=== PATIENT | female | born 1990 | race Caucasian/White ===

== ENCOUNTER 2022-08-03 16:30 | Inpatient (IN) ==
[2022-08-03] MEDS ORDERED: OXYTOCIN 30 UNITS/500 ML BAG IV PRN (16:54)
[2022-08-03] MEDS ORDERED: LIDOCAINE 1% LOCAL 20 ML VIAL INFIL PRN (16:54)
[2022-08-03] MEDS ORDERED: PENICILLIN G POTASSIUM 6 MU in DEXTROSE 5% 250 ML IV STA (16:54)
--- NOTE | 2022-08-03 17:24 | History & Physical Report ---
Date of Service August 03, 2022 Assessment & Plan (1) Premature rupture of membranes: Plan: 32-year-old -0-2-0 at 38 weeks and 2 days of gestation with premature rupture of membranes at term, no signs of symptoms of active labor, Vital signs stable afebrile, heart rate reassuring, GBS positive, Plan to admit, monitor, Start penicillin now, patient desires to ambulate, then start oral Cytotec for cervical ripening/induction/augmentation of labor, Patient understands increased risk of intermittent infection with prolonged labor and agrees for oxytocin induction later if she was not going to labor All questions were answered. (2) Amniotic fluid leaking: History of Present Illness Primary Care Provider: Mary Hogan DO Patient is a 32-year-old -0-1-0 at start 8 weeks and 2 days of gestation who felt a gush of clear fluid leakage at around 3 PM this afternoon. She has been leaking since then. She does not feel any contractions or pain. She feels good movements. Her has been uncomplicated except, 1. GBS in urine, 2. Maternal asthma, mild, uses inhaler as needed every 1 to 2 months, 3. Family history of congenital anomaly, status post [facility] consultation and ultrasound, 4. Depression complicating , on Zoloft 100 mg daily, Allergies Allergy/AdvReac Type Severity Reaction Status Date / Time cat dander Allergy Mild Sneezing, Verified 07/13/22 16:49 itchy and watery eyes gluten Allergy Gastrointestinal Verified 07/13/22 17:26 Upset DUST MITES Allergy Mild Difficulty Uncoded 07/13/22 16:49 Breathing SULFA Allergy Unknown fever,throat Uncoded 07/13/22 16:49 swelling Home Medications Medication Instructions Recorded Confirmed Type desloratadine 5 mg tablet 5 mg PO DAILY 07/13/22 08/03/22 History (Clarinex) famotidine 20 mg tablet 20 mg PO DAILY 07/13/22 08/03/22 History hydroxychloroquine 200 mg tablet 200 mg PO DAILY 07/13/22 08/03/22 History prenat.vits,horacio,zov-lzlj-ftbpi 1 tab PO DAILY 07/13/22 08/03/22 History sertraline 50 mg tablet 100 mg PO DAILY 07/13/22 08/03/22 History Patient History Medical History Anxiety Asthma Connective tissue disorder Ectopic Migraines Orthostatic hypotension PCOS (polycystic ovarian syndrome) Surgical History H/O dilation and curettage Social History Smoking Status: Never smoker Hx Alcohol Use: No Hx Substance Use: No Preferred Language: Latvian Communication Ability: Effective Loader Operator/Ground Leader Required: No Beliefs That Will Affect Care: None Current Living Situation: Spouse Assistive Devices: None OB History History of SAB in 2019, status post D&C, History of ectopic in 2019, s/p methotrexate SANDBLASTER STONE History History of STDs, no history of genital herpes, chlamydia, gonorrhea Physical Exam Constitutional: WD/WN, vitals as above well developed, well nourished and comfortable Gastrointestinal (Abdomen): normal bowel sounds, soft, nontender, no hepatosplenomegaly (Nontender, gravid, Liang 7 to 8 pounds) Genitourinary: normal external appearance OB Exam Abdomen: + vertex (Confirmed by ultrasound) Manual OB Exam: + cervical dilation fingertip, + cervical effacement 50% and + station high (Posterior, engaged) OB Exam Monitor Tracing: + external uterine monitor used and + category I Grossly ruptured, nitrazine positive, bedside ultrasound revealed vertex presentation, placenta posterior, heart rate 140s, enough amniotic fluid around the Results & Data ([facility]) Vital Signs (Past 12 Hours) Vital Signs Pulse BP 08/03/22 16:42 82 131/75
[2022-08-03 18:01] LABS: Hematocrit (blood only) 37.5 % (34.1-44.9); Hemoglobin 12.9 g/dl (12.0-16.0); Mean Corpuscular Hemoglobin 31.1 pg (25.0-34.0); Mean Corpuscular Hgb Conc 34.4 g/dL (32.0-36.0); Mean Corpuscular Volume 90.4 fL (80.0-100.0); RDW Coefficient of Variation 13.6 % (11.5-14.5); RDW Standard Deviation 44.2 fL (36.4-46.3); Red Blood Count 4.15 M/uL (3.93-5.22); White Blood Count 11.15 K/ul (4.8-10.8)
[2022-08-03] MEDS: LACTATED RINGER'S 1,000 ML IV PRN (18:01)
[2022-08-03 18:22] LABS: Mean Platelet Volume 13.5 fL (9.4-12.3); Platelet Count 132 K/uL (130-400)
[2022-08-03] MEDS: miSOPROStoL 50 MCG TAB PO SCH ×2 (21:26→21:27)
[2022-08-03] MEDS: PENICILLIN G POTASSIUM 3 MU in DEXTROSE 5% 100 ML IV PRN (22:00)
[2022-08-04] MEDS: FAMOTIDINE 20 MG TAB PO SCH ×2 (00:46→20:52)
[2022-08-04] MEDS: SERTRALINE HCL 100 MG TABLET PO SCH ×2 (00:46→20:52)
[2022-08-04] MEDS: HYDROXYCHLOROQUINE SULFATE 200 MG TAB PO SCH ×2 (00:46→20:52)
--- NOTE | 2022-08-04 01:03 | Obstetrical Progress Note ---
Date of Service August 04, 2022 Assessment & Plan Admission and Anticipated Discharge Date Admission Date: August 03, 2022 Subjective Patient is reevaluated. She ate dinner, ambulated and then received first dose of p.o. Cytotec at 9:30 PM. She started to feel contractions more regular and painful. And now she is asking for IV pain medication. Vital signs stable afebrile, heart rate category 1, Vaginal exam, cervix is tight 1 cm, 50% effaced, -2, posterior, Contractions Q 2 to 5 minutes Continue to monitor closely Stadol for pain. Results & Data ([facility]) Vital Signs (Past 12 Hours) Vital Signs Temp Pulse Resp BP 08/03/22 16:45 37.0 C 20 08/04/22 00:44 18 08/04/22 00:44 36.5 C 18 08/04/22 00:45 71 119/75 08/03/22 21:25 18 08/03/22 21:25 36.6 C 18 08/03/22 19:06 18 08/03/22 19:06 36.6 C 18 08/03/22 19:06 74 08/03/22 19:06 128/71 08/03/22 16:42 82 131/75
[2022-08-04] MEDS: BUTORPHANOL TARTRATE 1 MG/ML VIAL IV PRN ×4 (01:08→10:32)
[2022-08-04] MEDS: miSOPROStoL 50 MCG TAB PO SCH ×3 (02:43→18:34)
[2022-08-04] MEDS: PENICILLIN G POTASSIUM 3 MU in DEXTROSE 5% 100 ML IV PRN ×4 (03:00→15:52)
[2022-08-04] MEDS: LACTATED RINGER'S 1,000 ML IV PRN (10:25)
[2022-08-04] MEDS ORDERED: fentaNYL 2MCG/ML ROPIVACAINE 1.25MG/ML 100 ML BAG EPI PRN (10:46)
[2022-08-04] MEDS ORDERED: NALOXONE HCL 0.4 MG/1 ML VIAL/CARP IV PRN (10:46)
[2022-08-04] MEDS ORDERED: NALOXONE HCL 1 MG in SODIUM CHLORIDE 0.9% 1000ML 1,000 ML IV PRN (10:46)
[2022-08-04] MEDS ORDERED: ePHEDrine sulfate 50 MG/ML AMP IV PRN (10:46)
[2022-08-04] MEDS ORDERED: ONDANSETRON INJ 2 MG/ML 2 ML VIAL IV PRN (10:46)
[2022-08-04] MEDS ORDERED: NALBUPHINE HCL INJ 10 MG/ML AMP IV PRN (10:46)
[2022-08-04] MEDS ORDERED: diphenhydrAMINE 50 MG/ML VIAL IV PRN (10:46)
[2022-08-04] MEDS ORDERED: fentaNYL citrate 100 MCG/2 ML VIAL ONE (10:47)
[2022-08-04] MEDS ORDERED: LIDOCAINE 2%/EPINEPHRINE 1:200,000 20 ML SDV ONE (10:47)
[2022-08-04] MEDS ORDERED: ePHEDrine sulfate 50 MG/ML AMP ONE (10:47)
[2022-08-04] MEDS ORDERED: SODIUM CHLORIDE 0.9% INJ 10 ML VIAL ONE (10:47)
[2022-08-04] MEDS ORDERED: BUPIVACAINE 0.25% 30 ML VIAL ONE (10:47)
[2022-08-04] MEDS ORDERED: fentaNYL 2MCG/ML ROPIVACAINE 1.25MG/ML 100 ML BAG EPI ONE (10:48)
--- NOTE | 2022-08-04 10:49 | Anesthesiology Consultation ---
Date of Service August 04, 2022 Assessment & Plan Chart Review Chart Review: Acceptable Risk for Surgery and Patient NOT seen in Pre Admission Testing ASA ASA3 Proposed Anesthesia Anesthesia Type: Labor Epidural Risk / Benefits Reviewed With: PT / POA / Parent / Guardian, Accepts Plan and Informed Consent Obtained History Height/Weight Height: 5 ft 4 in Weight: 92.986 kg Allergies Allergy/AdvReac Type Severity Reaction Status Date / Time Sulfa (Sulfonamide Allergy Severe Fever and Verified 08/04/22 00:29 Antibiotics) throat swelling to "sufla" cat dander Allergy Mild Sneezing, Verified 07/13/22 16:49 itchy and watery eyes gluten Allergy Gastrointestinal Verified 07/13/22 17:26 Upset DUST MITES Allergy Mild Difficulty Uncoded 07/13/22 16:49 Breathing Medications Home Medications Medication Instructions Recorded Confirmed Last Taken desloratadine 5 mg tablet 5 mg PO DAILY 07/13/22 08/03/22 08/03/22 (Clarinex) famotidine 20 mg tablet 20 mg PO DAILY 07/13/22 08/03/22 08/03/22 hydroxychloroquine 200 mg tablet 200 mg PO DAILY 07/13/22 08/03/22 08/03/22 prenat.vits,horacio,qhz-xjzs-jqjbv 1 tab PO DAILY 07/13/22 08/03/22 08/03/22 sertraline 50 mg tablet 100 mg PO DAILY 07/13/22 08/03/22 08/02/22 Active Medications Generic Name Dose Route Start Last Admin Trade Name Freq PRN Reason Stop Dose Admin Butorphanol Tartrate 1 mg 08/03/22 19:16 08/04/22 10:32 Butorphanol Tartrate 1 Mg/Ml Vial IV 09/02/22 19:15 1 mg Q2HWA PRN Administration Pain Famotidine 20 mg 08/04/22 00:30 08/04/22 00:46 Famotidine 20 Mg Tab PO 09/03/22 00:29 20 mg HS MEGAN Administration Hydroxychloroquine Sulfate 200 mg 08/04/22 00:30 08/04/22 00:46 Hydroxychloroquine Sulfate 200 Mg Tab PO 09/03/22 00:29 200 mg HS MEGAN Administration Lactated Ringer's 1,000 mls @ 150 mls/hr 08/03/22 16:54 08/04/22 10:25 Lr IV 08/05/22 16:53 999 mls/hr .Q6H40M PRN Administration L&D Protocol Protocol Penicillin G Potassium 3 mu/ 106 mls @ 100 mls/hr 08/03/22 19:54 08/04/22 11:42 Dextrose IV 08/13/22 19:53 100 mls/hr Q4H PRN Administration GBS(+) Until Delivery Misoprostol 50 mcg 08/03/22 18:00 08/04/22 08:15 Misoprostol 50 Mcg Tab PO 09/02/22 19:59 50 mcg Q4H MEGAN Administration Sertraline HCl 100 mg 08/04/22 00:30 08/04/22 00:46 Sertraline Hcl 100 Mg Tablet PO 09/03/22 00:29 100 mg HS MEGAN Administration Past Medical History Medical History Anxiety Asthma Connective tissue disorder Ectopic Migraines Orthostatic hypotension PCOS (polycystic ovarian syndrome) Exercise / Class Metabolic Activity II 4-5 Yardwork/Stairs/Walk up hill Past Surgical History Surgical History H/O dilation and curettage Past Anesthesia History No Hx of Anesthesia Complications and No Family Hx of Anesthesia Complications History of PONV No Hx of PONV and No Hx of Motion Sickness Social History Smoking Status: Never smoker Hx Alcohol Use: No Hx Substance Use: No Review of Systems denies fever/cough/ colds/ chest pain/ SOB/ ERNA denies ERNA Physical Exam Vital Signs Last Vital Signs Temp 36.5 C 08/04/22 09:14 Pulse 94 H 08/04/22 12:04 Resp 20 08/04/22 07:24 BP 109/57 L 08/04/22 12:04 Pulse Ox 99 08/04/22 12:02 ENMT Mouth: no TMJ abnormality and no dentition abnormality Thyromental Distance: > or= 3.5 Finger Breadths Mallampati Class: II Neck neck extension not limited Respiratory normal respiratory effort; no respiratory distress Auscultation: lungs clear to auscultation bilaterally Cardiovascular Rate/Rhythm: regular rate and regular rhythm Neurologic moves all extremities Psychiatric Orientation: alert and oriented x 3 Testing Laboratory Results 08/03/22 17:36 Blood Type O Positive 08/03/22 17:36 Antibody Screen NEGATIVE 08/03/22 17:36
[2022-08-04] MEDS ORDERED: OXYTOCIN 30 UNITS/500 ML BAG IV PRN ×2 (12:50→22:10)
--- NOTE | 2022-08-04 14:28 | Labor Progress Brief Note ---
Date of Service August 04, 2022 Assessment & Plan Admission and Anticipated Discharge Date Admission Date: August 03, 2022 Physical Exam Genitourinary: Manual OB Exam: + cervical dilation 4 cm, + cervical effacement 90% and + station -1 OB Exam Monitor Tracing: + external FHT monitor used, + external uterine monitor used, + category I and + normal FHT variability Results & Data ([facility]) Vital Signs (Past 12 Hours) Vital Signs Temp Pulse Resp BP Pulse Ox 08/04/22 14:22 76 98 08/04/22 13:30 16 08/04/22 13:30 36.6 C 16 08/04/22 14:17 85 98 08/04/22 14:13 71 105/57 L 08/04/22 14:12 72 98 08/04/22 14:07 72 98 08/04/22 14:02 73 98 08/04/22 13:57 75 98 08/04/22 13:58 72 108/55 L 08/04/22 13:52 78 98 08/04/22 13:47 74 99 08/04/22 13:42 84 103/53 L 99 08/04/22 13:37 78 100 08/04/22 13:32 79 99 08/04/22 13:27 73 100 08/04/22 13:28 77 106/58 L 08/04/22 13:22 81 100 08/04/22 13:17 78 100 08/04/22 13:12 73 121/58 L 100 08/04/22 13:07 77 100 08/04/22 13:02 91 H 99 08/04/22 12:59 77 112/64 08/04/22 12:57 78 99 08/04/22 12:52 78 98 08/04/22 12:47 80 99 08/04/22 12:42 76 117/59 L 98 08/04/22 12:37 80 99 08/04/22 12:32 81 98 08/04/22 12:28 78 116/59 L 08/04/22 12:27 84 98 08/04/22 12:22 83 100 08/04/22 12:17 75 100 08/04/22 12:12 87 99 08/04/22 12:10 82 112/63 08/04/22 12:07 99 08/04/22 12:07 84 08/04/22 12:07 85 113/61 08/04/22 12:04 94 H 109/57 L 08/04/22 12:02 90 99 08/04/22 12:01 88 112/57 L 08/04/22 11:58 94 H 108/53 L 08/04/22 11:57 89 99 08/04/22 11:55 86 110/58 L 08/04/22 11:52 85 99 08/04/22 11:51 90 112/55 L 08/04/22 11:47 94 H 98 08/04/22 11:46 92 H 104/59 L 08/04/22 11:42 88 99 08/04/22 11:43 88 114/56 L 08/04/22 11:40 88 117/60 08/04/22 11:37 98 08/04/22 11:37 89 08/04/22 11:37 88 112/58 L 08/04/22 11:34 83 120/62 08/04/22 11:32 83 98 08/04/22 11:31 127/74 08/04/22 11:27 93 H 100 08/04/22 11:28 90 125/63 08/04/22 11:26 87 94 08/04/22 11:25 90 117/58 L 08/04/22 11:22 95 H 100 08/04/22 11:02 78 101/60 08/04/22 09:14 36.5 C 08/04/22 07:24 20 08/04/22 07:24 36.5 C 20 08/04/22 07:26 75 116/73 08/04/22 05:28 18 08/04/22 05:28 36.6 C 18 08/04/22 03:00 18 08/04/22 03:00 36.4 C L 18 08/04/22 04:12 78 129/66
[2022-08-04] MEDS ORDERED: NURSING L&D Epidural Breakthrough Pain Update ONE (16:02)
--- NOTE | 2022-08-04 18:49 | Labor Progress Brief Note ---
Date of Service August 04, 2022 Assessment & Plan Admission and Anticipated Discharge Date Admission Date: August 03, 2022 Physical Exam Genitourinary: Manual OB Exam: + cervical dilation 10 cm, + cervical effacement 100%, + station 0 and + amniotic fluid clear OB Exam Monitor Tracing: + external FHT monitor used, + external uterine monitor used, + category I and + normal FHT variability Results & Data ([facility]) Vital Signs (Past 12 Hours) Vital Signs Temp Pulse Resp BP Pulse Ox O2 Del Method 08/04/22 17:33 36.7 C 20 08/04/22 17:33 Room Air 08/04/22 18:43 91 H 128/59 L 08/04/22 18:42 108 H 98 08/04/22 18:37 100 H 97 08/04/22 18:32 100 H 99 08/04/22 18:27 98 08/04/22 18:27 93 H 08/04/22 18:27 92 H 122/56 L 08/04/22 18:22 86 99 08/04/22 18:17 89 99 08/04/22 18:12 89 122/57 L 100 08/04/22 18:07 90 20 99 08/04/22 18:02 86 99 08/04/22 17:57 90 99 08/04/22 17:52 95 H 98 08/04/22 17:47 95 H 98 08/04/22 17:42 86 108/65 99 08/04/22 17:37 80 98 08/04/22 17:32 85 99 08/04/22 17:27 78 108/56 L 98 08/04/22 17:22 81 98 08/04/22 17:17 83 98 08/04/22 17:12 97 08/04/22 17:12 85 08/04/22 17:12 74 107/52 L 08/04/22 17:07 78 97 08/04/22 17:00 18 08/04/22 17:00 18 08/04/22 17:02 75 98 08/04/22 16:57 81 110/55 L 98 08/04/22 16:52 81 98 08/04/22 16:47 86 98 08/04/22 16:42 80 99 08/04/22 16:43 79 108/55 L 08/04/22 16:37 75 99 08/04/22 16:32 85 98 08/04/22 16:28 75 113/57 L 08/04/22 16:27 79 99 08/04/22 16:22 79 99 08/04/22 16:17 89 99 08/04/22 16:14 99 H 117/68 08/04/22 16:12 97 H 99 08/04/22 16:07 92 H 99 08/04/22 16:02 91 H 99 08/04/22 15:57 91 H 113/62 99 08/04/22 15:54 37.0 C 08/04/22 15:52 97 H 99 08/04/22 15:47 86 99 08/04/22 15:30 18 08/04/22 15:30 18 08/04/22 15:42 84 99 08/04/22 15:43 82 111/64 08/04/22 15:37 90 99 08/04/22 15:32 91 H 99 08/04/22 15:27 87 99 08/04/22 15:28 91 H 122/65 08/04/22 15:22 90 98 08/04/22 15:17 82 99 08/04/22 15:12 80 122/62 98 08/04/22 15:07 80 99 08/04/22 15:02 87 100 08/04/22 14:59 16 08/04/22 14:59 16 08/04/22 14:57 80 100 08/04/22 14:58 78 116/60 08/04/22 14:52 76 99 08/04/22 14:47 83 99 08/04/22 14:42 83 121/58 L 99 08/04/22 14:37 94 H 100 08/04/22 14:32 89 100 08/04/22 14:30 82 18 132/60 08/04/22 14:27 74 99 08/04/22 14:22 76 98 08/04/22 13:30 16 08/04/22 13:30 36.6 C 16 08/04/22 14:17 85 98 08/04/22 14:13 71 105/57 L 08/04/22 14:12 72 98 08/04/22 14:07 72 98 08/04/22 14:02 73 98 08/04/22 13:57 75 98 08/04/22 13:58 72 108/55 L 08/04/22 13:52 78 98 08/04/22 13:47 74 99 08/04/22 13:42 84 103/53 L 99 08/04/22 13:37 78 100 08/04/22 13:32 79 99 08/04/22 13:27 73 100 08/04/22 13:28 77 106/58 L 08/04/22 13:22 81 100 08/04/22 13:17 78 100 08/04/22 13:12 73 121/58 L 100 08/04/22 13:07 77 100 08/04/22 13:02 91 H 99 08/04/22 12:59 77 112/64 08/04/22 12:57 78 99 08/04/22 12:52 78 98 08/04/22 12:47 80 99 08/04/22 12:42 76 117/59 L 98 08/04/22 12:37 80 99 08/04/22 12:32 81 98 08/04/22 12:28 78 116/59 L 08/04/22 12:27 84 98 08/04/22 12:22 83 100 08/04/22 12:17 75 100 08/04/22 12:12 87 99 08/04/22 12:10 82 112/63 08/04/22 12:07 99 08/04/22 12:07 84 08/04/22 12:07 85 113/61 08/04/22 12:04 94 H 109/57 L 08/04/22 12:02 90 99 08/04/22 12:01 88 112/57 L 08/04/22 11:58 94 H 108/53 L 08/04/22 11:57 89 99 08/04/22 11:55 86 110/58 L 08/04/22 11:52 85 99 08/04/22 11:51 90 112/55 L 08/04/22 11:47 94 H 98 08/04/22 11:46 92 H 104/59 L 08/04/22 11:42 88 99 08/04/22 11:43 88 114/56 L 08/04/22 11:40 88 117/60 08/04/22 11:37 98 08/04/22 11:37 89 08/04/22 11:37 88 112/58 L 08/04/22 11:34 83 120/62 08/04/22 11:32 83 98 08/04/22 11:31 127/74 08/04/22 11:27 93 H 100 08/04/22 11:28 90 125/63 08/04/22 11:26 87 94 08/04/22 11:25 90 117/58 L 08/04/22 11:22 95 H 100 08/04/22 11:02 78 101/60 08/04/22 09:14 36.5 C 08/04/22 07:24 20 08/04/22 07:24 36.5 C 20 08/04/22 07:26 75 116/73
--- NOTE | 2022-08-04 20:56 | Delivery Summary ---
Vaginal Delivery Summary Date of Service August 04, 2022 Vaginal Delivery Summary Delivery Note live male OP with delayed cord clamping and Apgars 8/9 weight pending. Cord blood obtained followed by spontaneous delivery of intact placenta. First degree tear repaired wit 3/0 Vicryl suture. EBL 200 ml. Final sponge, needle and instrument count are correct. Mom and baby stable.
[2022-08-04] MEDS ORDERED: BENZOCAINE 20% AER SPR 82.5 GM CAN EXT PRN (22:10)
[2022-08-04] MEDS ORDERED: DIPHTHERIA/TETANUS/PERTUSSIS 0.5 ML SYR/VIAL IM ONE (22:10)
[2022-08-04] MEDS ORDERED: HYDROCORTISONE ACETATE 25 MG SUPP PR PRN (22:10)
[2022-08-04] MEDS ORDERED: ACETAMINOPHEN 325 MG TAB ONE (22:15)
[2022-08-05] MEDS ORDERED: bisacodyL 10 MG SUPP PR PRN
[2022-08-05] MEDS ORDERED: [UNRECOGNIZED DRUG - REMARK] SCH
[2022-08-05] MEDS: DOCUSATE SODIUM 100 MG CAP PO SCH ×3 (04:14→20:37)
[2022-08-05] MEDS: IBUPROFEN 600 MG TAB PO PRN ×3 (05:24→15:26)
[2022-08-05 07:23] LABS: Hematocrit (blood only) 35.1 % (34.1-44.9); Hemoglobin 11.6 g/dl (12.0-16.0); Mean Corpuscular Hemoglobin 30.3 pg (25.0-34.0); Mean Corpuscular Volume 91.6 fL (80.0-100.0); Mean Platelet Volume 12.7 fL (9.4-12.3); Platelet Count 116 K/uL (130-400); RDW Standard Deviation 45.3 fL (36.4-46.3); Red Blood Count 3.83 M/uL (3.93-5.22); White Blood Count 14.26 K/ul (4.8-10.8)
[2022-08-05] MEDS: ACETAMINOPHEN 325 MG TAB PO PRN ×3 (08:42→18:24)
[2022-08-05] MEDS: FERROUS SULFATE 325 MG TAB PO SCH (08:42)
[2022-08-05] MEDS: PRENATAL VITAMIN 1 TAB PO SCH (08:42)
[2022-08-05] MEDS ORDERED: SERTRALINE HCL 100 MG TABLET PO SCH (09:00)
[2022-08-05] MEDS ORDERED: HYDROXYCHLOROQUINE SULFATE 200 MG TAB PO SCH (09:00)
[2022-08-05] MEDS ORDERED: FAMOTIDINE 20 MG TAB PO SCH (09:00)
[2022-08-05] MEDS ORDERED: DESLORATADINE 5 MG EXT SCH (09:00)
[2022-08-05] MEDS ORDERED: NON-FORMULARY MEDICATION (Prenat.Vits,Cal,Min-Iron-Folic Tablet) PO SCH (09:00)
[2022-08-05] MEDS ORDERED: Nursing to Pharmacy Communication SCH (10:30)
--- NOTE | 2022-08-05 11:08 | Anesthesia Procedure Note ---
Date of Service August 05, 2022 Anesthesia Post Epidural Note Vital Signs Vital Signs: Temp Pulse Resp BP Pulse Ox O2 Del Method 36.6 C 80 20 108/68 100 08/05/22 08:35 08/05/22 08:35 08/05/22 08:35 08/05/22 08:35 08/05/22 08:35 08/05/22 08:35 Pain Intensity Abdomen: Pain Intensity: 4 Notes Mental Status: alert / awake / arousable and participated in evaluation Nausea / Vomiting: adequately controlled Pain: adequately controlled Airway Patency, RR, SpO2: stable & adequate BP & HR: stable & adequate Hydration State: stable & adequate Neuraxial Anesthesia: was administered and sensory block resolved Anesthetic Complications: no major complications apparent and Pt Satisfied with anesthetic care Epidural: Removed without complications and With tip intact
--- NOTE | 2022-08-05 11:29 | Obstetrical Progress Note ---
Date of Service August 05, 2022 Subjective Ambulation: ambulating normally Voiding: no voiding problems Passing Gas:: Yes Diet Tolerance:: regular diet Lochia:: Small Feeding Type:: breast feeding Current Pain Level(1-10): 0 doing well Physical Exam Constitutional WD/WN, vitals as above Gastrointestinal (Abdomen) Inspection/Auscultation: abdomen normal to inspection abdomen soft and non-tender fundus firm below U Musculoskeletal Extremities: extremities normal to inspection Skin no rashes, warm and dry Neurologic patellar DTR's 2+ bilat, sensation intact Psychiatric A+Ox3, euthymic affect Results & Data ([facility]) Vital Signs (Past 12 Hours) Vital Signs Temp Pulse Resp BP BP Pulse Ox O2 Del Method 08/05/22 08:35 36.6 C 80 20 108/68 100 Room Air 08/05/22 04:00 36.9 C 75 18 99/63 L 98 Room Air Laboratory Results 08/03/22 08/03/22 08/03/22 17:36 17:36 17:47 WBC 11.15 H RBC 4.15 Hgb 12.9 Hct 37.5 MCV 90.4 MCH 31.1 MCHC 34.4 RDW Std Deviation 44.2 RDW Coeff of Ben 13.6 Plt Count 132 MPV 13.5 H SARS-CoV-2, RNA, NAAT NEGATIVE Blood Type O Positive Antibody Screen NEGATIVE 08/05/22 07:09 WBC 14.26 H RBC 3.83 L Hgb 11.6 L Hct 35.1 MCV 91.6 MCH 30.3 MCHC 33.0 RDW Std Deviation 45.3 RDW Coeff of Ben 14.0 Plt Count 116 L MPV 12.7 H SARS-CoV-2, RNA, NAAT Blood Type Antibody Screen
[2022-08-05] MEDS ORDERED: bisacodyL 5 MG TABEC PO SCH (20:00)
[2022-08-05] MEDS: HYDROXYCHLOROQUINE SULFATE 200 MG TAB PO SCH (20:37)
[2022-08-05] MEDS: SERTRALINE HCL 100 MG TABLET PO SCH (20:39)
[2022-08-05] MEDS: FAMOTIDINE 20 MG TAB PO SCH (20:39)
[2022-08-05] MEDS ORDERED: DESLORATADINE 5 MG PO SCH (21:00)
[2022-08-06] MEDS: IBUPROFEN 600 MG TAB PO PRN ×2 (02:39→12:34)
[2022-08-06] MEDS: ACETAMINOPHEN 325 MG TAB PO PRN (04:14)
[2022-08-06 06:29] LABS: Hemoglobin 10.8 g/dl (12.0-16.0)
[2022-08-06] MEDS: FERROUS SULFATE 325 MG TAB PO SCH (07:35)
[2022-08-06] MEDS: PRENATAL VITAMIN 1 TAB PO SCH (07:35)
[2022-08-06] MEDS: DOCUSATE SODIUM 100 MG CAP PO SCH (07:35)
--- NOTE | 2022-08-06 09:22 | Obstetrical Progress Note ---
Date of Service August 06, 2022 Assessment & Plan (1) Normal course: PPD #2 pt doing well d/c home with instrcutions Results & Data ([facility]) Vital Signs (Past 12 Hours) Vital Signs Temp Pulse Resp BP BP Pulse Ox O2 Del Method 08/06/22 08:00 Room Air 08/06/22 08:00 36.7 C 74 18 112/73 99 Room Air 08/06/22 00:30 36.8 C 71 18 118/72
== END 2022-08-06 16:15 | disposition home or self-care (01) | DRG 807 ==
LOC: OPB 16:30 → 4S1 16:32 → 4E2 08-05 00:15

== ENCOUNTER 2025-04-16 09:01 | Inpatient (IN) ==
[2025-04-16] MEDS ORDERED: OXYTOCIN 30 UNITS/NSS 30 UNITS/500 ML BAG IV PRN (11:32)
[2025-04-16] MEDS ORDERED: LIDOCAINE 1% LOCAL 20 ML VIAL INFIL PRN (11:32)
--- NOTE | 2025-04-16 11:49 | History & Physical Report ---
Date of Service April 16, 2025 Assessment & Plan (1) Normal labor: Plan: Pt is a at 40w 2d with hx of GBS+ presenting for active labor. Routine labs ordered Pitocin ordered Epidural placement ordered Monitor tracing Expectant management for labor GBS +, penicillin ordered History of Present Illness Primary Care Provider: Mary Hogan DO Cardenas is a 34y/o female currently at 40w 2d with an DARIUS 04/14/25 who is here for active labor. Her is complicated by GBS+. Having contractions every 5 minutes; adequate movement; positive fluid loss; positive bloody show External FHT and external uterine monitors used; Category 1 tracing; FHT 135bpm with moderate variability, accelerations present, decelerations absent Had regular appointments with OB. Labs Lab Results OB Labs: Blood Type O Positive 09/17/24 Antibody Screen NEGATIVE 09/17/24 Hgb 12.9 g/dl (12.0-16.0) 04/01/25 Hct 39.7 % (37.0-47.0) 04/01/25 MCV 92.8 fL (80.0-100.0) 04/01/25 Plt Count 114 K/uL (130-400) L 04/01/25 Rubella IgG Antibody Immune (Immune) 09/17/24 Treponema pallidum Ab Negative (Negative) 01/21/25 Hep Bs Antigen Negative (Negative) 09/17/24 Hepatitis C Antibody Negative (Negative) 09/17/24 HIV 1&2 Ab/P24 Ag 4thGn Negative (Negative) 09/17/24 Glucose 1 Hr 50 gm 104 mg/dl (70-130) 01/21/25 Maternal Serum AFP 56.1 ng/mL 10/29/24 OB Optional Labs: Chlamydia trachomatis RNA Not Detected (NotDetected) 09/17/24 Neisseria gonorrhoeae RNA Not Detected (NotDetected) 09/17/24 Thyroid Stimulating Hormone (TSH) 0.655 uIu/ml (0.300-4.500) 01/06/25 Alpha Fetoprotein Triple Screen SEE NOTE 10/29/24 Labs Reviewed: afp neg--akh low risk panorama--akh Cystic Fibrosis: neg SMA: neg Review of Systems : Denies fever, chills, sweats Denies shortness of breath, difficulty breathing, chest pain, palpitations, chest pressure. Denies breast pain. Denies dysuria. Denies headache or changes in vision. Allergies Allergy/AdvReac Type Severity Reaction Status Date / Time Sulfa (Sulfonamide Allergy Severe Fever and Verified 04/15/25 09:28 Antibiotics) throat swelling to "sufla" cat dander Allergy Mild Sneezing, Verified 04/15/25 09:28 itchy and watery eyes house dust mite Allergy Mild Difficulty Verified 04/15/25 09:28 Breathing dog dander Allergy Hives Verified 04/15/25 09:28 gluten Allergy Gastrointestinal Verified 04/15/25 09:28 Upset Home Medications Medication Instructions Recorded Confirmed Type budesonide 32 mcg/actuation nasal 2 spray intranasal DAILY #8.43 mL 05/12/24 04/16/25 Rx spray ipratropium bromide 21 mcg (0.03 2 spray intranasal TID PRN 05/12/24 04/16/25 Rx %) nasal spray postnasal drip #30 mL budesonide-formoterol HFA 160 2 puff inhalation BID #10.2 grams 12/28/24 04/16/25 Rx mcg-4.5 mcg/actuation aerosol inhaler (Breyna) inhalational spacing device #1 ea 12/28/24 04/15/25 Rx tiotropium bromide 1.25 2 puff inhalation DAILY #4 grams 01/13/25 04/16/25 Rx mcg/actuation mist for inhalation (Spiriva Respimat) sertraline 100 mg tablet (Zoloft) 100 mg PO DAILY #30 tabs 02/12/25 04/16/25 Rx azelastine 137 mcg (0.1 %) nasal 2 spray intranasal DAILY PRN nasal 04/16/25 04/16/25 History spray congestion famotidine 20 mg tablet 20 mg PO BID 04/16/25 04/16/25 History vits no.133-ferrous 1 tab PO DAILY 04/16/25 04/16/25 History fumarate 28 mg-folic acid 800 mcg tablet () Patient History Medical History History of chicken pox Celiac disease Exercise induced bronchospasm Chronic rhinitis Urinary tract infection Ectopic Orthostatic hypotension Connective tissue disorder Migraines PCOS (polycystic ovarian syndrome) Anxiety Asthma Surgical History History of oral surgery S/P wisdom tooth extraction H/O dilation and curettage Family History Grandmother (Maternal) Breast cancer Uncle Colorectal cancer Grandfather (Paternal) Myocardial infarction Denies family history of Ovarian cancer Prostate cancer Social History Smoking Status: Never smoker Second Hand Exposure: No; Do You Dip or Chew Tobacco: No; Hx Alcohol Use: No Hx Substance Use: No Preferred Language: Arabic Communication Ability: Effective Pipeline Executive Required: No Beliefs That Will Affect Care: None marital status: marital status details: Mihir Guevara (32) [phone] Current Living Situation: Spouse and Family Current Living Situation Comment: lives with spouse, son, dog current occupational status: unemployed current occupation: homemaker Other Information That Helps Us Care for You: No Feels Safe at Home: Yes Safety Concerns: Feels Safe At This Time Assistive Devices: None Physical Exam Physical Exam: General: patient resting comfortably, NAD, non-toxic in appearance, AAOx4, answers questions appropriately. Skin: warm, dry, intact HEENT: NC/AT, anicteric sclera, conjunctiva without injection Heart: S1/S2 heard, regular, no m/r/g Lungs: equal air entry bilaterally, no rales/rhonchi/wheezes Abd: Normoactive BS, soft, NT/ND, gravid uterus Ext: warm, no clubbing/cyanosis or edema Neuro: nonfocal, speech intact, no facial droop, moving all extremities on command : FHR cat 1: baseline 135, moderate variability, accelerations present, decelerations absent, rare contractions Results & Data Vital Signs (Past 12 Hours) Vital Signs Temp Pulse Resp BP 04/16/25 10:49 75 04/16/25 10:49 123/67 04/16/25 09:11 36.4 C L 90 16 131/73 04/16/25 09:08 36.4 C L 90 16 131/73 Supervising Physician Co-Signing Physician Notes Resident Physician Supervision Note: I interviewed and examined the patient. Discussed with Dr. Mason and agree with findings and plan as documented in the note. Any exceptions or clarifications are listed here: 34yo @ 40 2, PROM at home, approx 3a, irreg ctx. Will plan to admit to L&D and start pitocin. Documented By: Indira Correa, DO Resident Activity Tracking Resident Involvement: Resident Care Provided Care Provided: OB Delivery
[2025-04-16] MEDS: LACTATED RINGER'S 1,000 ML IV PRN (12:11)
[2025-04-16 12:25] LABS: Hematocrit (blood only) 40.8 % (37.0-47.0); Hemoglobin 13.6 g/dl (12.0-16.0); Mean Corpuscular Hemoglobin 30.6 pg (25.0-34.0); Mean Corpuscular Volume 91.7 fL (80.0-100.0); Platelet Count 122 K/uL (130-400); RDW Standard Deviation 47.2 fL (36.4-46.3); Red Blood Count 4.45 M/uL (4.20-5.40); White Blood Count 17.44 K/ul (4.8-10.8)
[2025-04-16] MEDS: PENICILLIN GK 6 MU in DEXTROSE 5% 250 ML IV STA (13:02)
[2025-04-16] MEDS: PENICILLIN GK 3 MU in DEXTROSE 5% 100 ML IV PRN (16:28)
[2025-04-16] MEDS: OXYTOCIN 30 UNITS/NSS 30 UNITS/500 ML BAG IV PRN (18:05)
[2025-04-16] MEDS ORDERED: SODIUM CHLORIDE 0.9% PF INJ 10 ML VIAL ONE (18:30)
[2025-04-16] MEDS ORDERED: BUPIVACAINE 0.25% PF 30 ML VIAL ONE (18:31)
[2025-04-16] MEDS ORDERED: LIDOCAINE 2%/EPINEPHRINE 1:200,000 20 ML PF ONE (18:31)
[2025-04-16] MEDS ORDERED: fentANYL 2 MCG/ML BUPIVacaine 0.125%-NSS 100ML BAG EPI PRN (18:59)
[2025-04-16] MEDS ORDERED: BUPIVACAINE 0.25% PF 30 ML VIAL EPI STA (18:59)
[2025-04-16] MEDS ORDERED: diphenhydrAMINE 50 MG/ML VIAL IV PRN (18:59)
[2025-04-16] MEDS ORDERED: LIDOCAINE 2% MPF LOCAL 5 ML VIAL EPI PRN (18:59)
[2025-04-16] MEDS ORDERED: ROPIVACAINE 0.5% PF 5 MG/ML 20 ML VIAL EPI PRN (18:59)
[2025-04-16] MEDS ORDERED: NALBUPHINE HCL INJ 10 MG/ML AMP IV PRN (18:59)
[2025-04-16] MEDS ORDERED: LIDOCAINE 2%/EPINEPHRINE 1:200,000 20 ML PF EPI STA (18:59)
[2025-04-16] MEDS ORDERED: BUPIVACAINE 0.25% PF 30 ML VIAL EPI PRN (18:59)
[2025-04-16] MEDS ORDERED: ONDANSETRON INJ 2 MG/ML 2 ML VIAL IV PRN (18:59)
[2025-04-16] MEDS ORDERED: SODIUM CHLORIDE 0.9% PF INJ 10 ML VIAL EPI STA (18:59)
[2025-04-16] MEDS ORDERED: NALOXONE HCL 1 MG in SODIUM CHLORIDE 0.9% 1,000 ML IV PRN (18:59)
[2025-04-16] MEDS ORDERED: SODIUM CHLORIDE 0.9% PF INJ 10 ML VIAL EPI PRN (18:59)
[2025-04-16] MEDS ORDERED: NALOXONE HCL 0.4 MG/1 ML VIAL/CARP IV PRN (18:59)
--- NOTE | 2025-04-16 18:59 | Anesthesiology Consultation ---
Date of Service April 16, 2025 Assessment & Plan ASA ASA2 Proposed Anesthesia Anesthesia Type: Labor Epidural Risk / Benefits Reviewed With: PT / POA / Parent / Guardian, Accepts Plan and Informed Consent Obtained History Height/Weight Height: 5 ft 4 in Weight: 92.986 kg Allergies Allergy/AdvReac Type Severity Reaction Status Date / Time Sulfa (Sulfonamide Allergy Severe Fever and Verified 04/15/25 09:28 Antibiotics) throat swelling to "sufla" cat dander Allergy Mild Sneezing, Verified 04/15/25 09:28 itchy and watery eyes house dust mite Allergy Mild Difficulty Verified 04/15/25 09:28 Breathing dog dander Allergy Hives Verified 04/15/25 09:28 gluten Allergy Gastrointestinal Verified 04/15/25 09:28 Upset Medications Home Medications Medication Instructions Recorded Confirmed Last Taken budesonide 32 mcg/actuation nasal 2 spray intranasal DAILY #8.43 mL 05/12/24 04/16/25 04/15/25 22:00 spray ipratropium bromide 21 mcg (0.03 2 spray intranasal TID PRN 05/12/24 04/16/25 Unknown %) nasal spray postnasal drip #30 mL budesonide-formoterol HFA 160 2 puff inhalation BID #10.2 grams 12/28/24 04/16/25 04/15/25 22:00 mcg-4.5 mcg/actuation aerosol inhaler (Breyna) inhalational spacing device #1 ea 12/28/24 04/15/25 Unknown tiotropium bromide 1.25 2 puff inhalation DAILY #4 grams 01/13/25 04/16/25 04/15/25 22:00 mcg/actuation mist for inhalation (Spiriva Respimat) sertraline 100 mg tablet (Zoloft) 100 mg PO DAILY #30 tabs 02/12/25 04/16/25 04/15/25 22:00 azelastine 137 mcg (0.1 %) nasal 2 spray intranasal DAILY PRN nasal 04/16/25 04/16/25 04/15/25 22:00 spray congestion famotidine 20 mg tablet 20 mg PO BID 04/16/25 04/16/25 04/15/25 22:00 vits no.133-ferrous 1 tab PO DAILY 04/16/25 04/16/25 04/15/25 22:00 fumarate 28 mg-folic acid 800 mcg tablet () Active Medications Generic Name Dose Route Start Last Admin Trade Name Leia PRN Reason Stop Dose Admin Oxytocin 30 units in 500 mls @ 3 mls/hr 04/16/25 11:32 04/16/25 18:40 Pitocin 30 Units/Nss IV 04/18/25 11:31 0.18 units/hr .Q24H PRN 3 mls/hr Labor Induction/Augmentation Titration Protocol 0.18 UNITS/HR Lactated Ringer's 1,000 mls @ 125 mls/hr 04/16/25 11:32 04/16/25 19:27 Lr IV 04/18/25 11:31 999 mls/hr .Q8H PRN Administration L&D Protocol Protocol Penicillin G Potassium 3 mu/ 106 mls @ 100 mls/hr 04/16/25 15:20 04/16/25 16:28 Dextrose IV 04/26/25 15:19 100 mls/hr Q4H PRN Administration GBS(+) Until Delivery Past Medical History Medical History History of chicken pox Celiac disease Exercise induced bronchospasm Chronic rhinitis Urinary tract infection Ectopic Orthostatic hypotension Connective tissue disorder Migraines PCOS (polycystic ovarian syndrome) Anxiety Asthma Exercise / Class Metabolic Activity II 4-5 Yardwork/Stairs/Walk up hill Past Family History Family History Grandmother (Maternal) Breast cancer Uncle Colorectal cancer On dad's side. Grandfather (Paternal) Myocardial infarction Denies family history of Ovarian cancer Prostate cancer Past Surgical History Surgical History History of oral surgery S/P wisdom tooth extraction H/O dilation and curettage Past Anesthesia History No Hx of Anesthesia Complications and No Family Hx of Anesthesia Complications History of PONV No Hx of PONV and No Hx of Motion Sickness Social History Smoking Status: Never smoker Do You Dip or Chew Tobacco: No Hx Alcohol Use: No Hx Substance Use: No substance use type: does not use Review of Systems denies fever/cough/ colds/ chest pain/ SOB/ ERNA denies ERNA Physical Exam Vital Signs Last Vital Signs Temp 36.7 C 07/18/25 17:46 Pulse 82 04/16/25 20:07 Resp 20 04/16/25 17:46 BP 109/55 L 04/16/25 20:07 Pulse Ox 94 04/16/25 20:06 ENMT Mouth: no TMJ abnormality and no dentition abnormality Thyromental Distance: > or= 3.5 Finger Breadths Mallampati Class: II Neck neck extension not limited Respiratory normal respiratory effort; no respiratory distress Auscultation: lungs clear to auscultation bilaterally Cardiovascular Rate/Rhythm: regular rate and regular rhythm Neurologic moves all extremities Psychiatric Orientation: alert and oriented x 3 Testing Laboratory Results 04/16/25 11:55
[2025-04-16] MEDS: fentANYL 2 MCG/ML BUPIVacaine 0.125%-NSS 100ML BAG ONE (19:21)
[2025-04-16] MEDS ORDERED: IPRATROPIUM BROMIDE NASAL SPRAY 0.03% 30 ML PRN (19:54)
[2025-04-16] MEDS: ALBUTEROL 0.5% NEB SOLN 2.5 MG/0.5 ML VIAL NEB STA (20:12)
[2025-04-16] MEDS: ACETAMINOPHEN 500 MG TAB PO STA (23:36)
--- NOTE | 2025-04-17 00:56 | Delivery Summary ---
Vaginal Delivery Summary Date of Service April 17, 2025 Vaginal Delivery Summary and 3rd Degree LAC Vaginal Delivery Summary: Pre-delivery diagnoses: 34yo @ 40 2/7, spontaneous labor, asthma, GBS+, arrhythmia Post-delivery diagnoses: same Procedure: spontaneous vaginal delivery Surgeon: Indira Correa DO Complications: none Findings: Viable male . Apgars: 6/8 . Weight pending, please see nursery records Estimated QBL: 55cc Description of delivery: The patient progressed to complete with epidural anesthesia. She then began to push. She spontaneously vaginally delivered a viable from the cephalic presentation. The head delivered in BRANDON position. The anterior shoulder delivered, followed by the posterior shoulder, followed by the body. The baby was placed on mother's abdomen and the cord was doubly clamped and cut - handed immediately to nursery team because baby was atonic, then a spontaneous cry was heard. Cord segment for gasses. Cord blood was obtained. The placenta was delivered spontaneously intact with a 3-vessel cord. The uterus and vagina were swept of clots and debris. IV pitocin was given. The uterus became firm. The cervix, vagina, and perineum were inspected. 3rd degree perineal laceration repaired - 3-0 chromic suture to reapproximate anal sphincter muscle, remainder of repair reapproximated with 3-0 Vicryl. Periurethral tear reapproximated with single 4-0 Vicryl sutures. Excellent hemostasis was observed. The mother and baby are recovering in stable and good condition in the room. Sponge, needle and instrument counts were correct x 2. Indira Correa DO [facility] Vaginal Delivery Charge Vaginal Delivery Codes: 97228 global code for the antepartum, delivery, and post- Delivery Type Details: and 3rd Degree LAC
[2025-04-17] MEDS ORDERED: OXYTOCIN 30 UNITS/NSS 30 UNITS/500 ML BAG IV PRN (00:59)
[2025-04-17] MEDS ORDERED: HYDROCORTISONE ACETATE 25 MG SUPP PR PRN (00:59)
[2025-04-17] MEDS: IBUPROFEN 600 MG TAB PO PRN (01:20)
[2025-04-17] MEDS: BENZOCAINE 20% SPRY 85 APPLN/85 GM CAN EXT PRN (01:22)
[2025-04-17 03:54] LABS: Base Excess Cord Venous Blood -1.7 mEq/L (-7.7-1.9); Cord Venous Blood PO2 < 20 mmHg (14.1-43.3); O2 Saturation Cord Venous Bld < 60.0 % (<68)
[2025-04-17] MEDS: DOCUSATE SODIUM 100 MG CAP PO SCH (08:10)
[2025-04-17] MEDS: PRENATAL VITAMIN 1 TAB PO SCH (08:10)
[2025-04-17] MEDS ORDERED: SERTRALINE HCL 100 MG TABLET PO SCH (09:00)
[2025-04-17] MEDS ORDERED: Nursing to Pharmacy Communication SCH (09:30)
[2025-04-17] MEDS: FAMOTIDINE 20 MG TAB PO SCH (09:46)
[2025-04-17] MEDS: FLUTICASONE PROPIONATE NA SPR 16 GM BTL SCH (09:47)
[2025-04-17] MEDS: FLUTICASONE/VILANTEROL 200/25MCG 14 PUFFS/INHALER INH SCH (09:48)
[2025-04-17] MEDS: DIPHTHER/TETAN/PERTUS Vaccine (Tdap, Adol/Adult) 0.5mL IM ONE (09:53)
[2025-04-17] MEDS: UMECLIDINIUM BROMIDE 62.5MCG/BLISTER 7 PUFFS/INHALER INH SCH ×2 (09:55→22:21)
[2025-04-17] MEDS: ACETAMINOPHEN 325 MG TAB PO PRN (12:49)
--- NOTE | 2025-04-17 17:37 | Anesthesia Procedure Note ---
Date of Service April 17, 2025 Anesthesia Post Epidural Note Vital Signs Vital Signs: Temp Pulse Resp BP Pulse Ox O2 Del Method 36.6 C 78 16 108/70 98 Room Air 04/17/25 12:45 04/17/25 12:45 04/17/25 12:45 04/17/25 12:45 04/17/25 04:00 04/17/25 04:00 Pain Intensity Abdomen: Pain Intensity: 10 Notes Mental Status: alert / awake / arousable and participated in evaluation Nausea / Vomiting: adequately controlled Pain: adequately controlled Airway Patency, RR, SpO2: stable & adequate BP & HR: stable & adequate Hydration State: stable & adequate Neuraxial Anesthesia: was administered and sensory block is resolving Anesthetic Complications: no major complications apparent Epidural: Removed without complications and With tip intact
[2025-04-17] MEDS: SIMETHICONE 80 MG CHEW PO PRN (18:07)
[2025-04-17] MEDS: SERTRALINE HCL 100 MG TABLET PO SCH (22:20)
[2025-04-17] MEDS: Nursing to Pharmacy Communication SCH (22:22)
[2025-04-18 06:22] VITALS: O2SAT 99
--- NOTE | 2025-04-18 07:14 | Obstetrical Progress Note ---
Date of Service April 18, 2025 Assessment & Plan (1) exam: Plan Doing overall well. Will give florinef now, however, will not prescribe for home. If feeling like she needs this, will need to f/u with pcp. Continue routine care. Day #:: 1 Subjective Ambulation: ambulating normally Voiding: no voiding problems Passing Gas:: Yes Diet Tolerance:: regular diet Lochia:: Small Feeding Type:: breast feeding Patient notes a hx of low blood pressure and has been on florinef in the past. She has not taken since her last . She has noted a couple of times where she felt her blood pressure get low. she wonders if she can take the florinef. Physical Exam bps wnl Constitutional WD/WN, vitals as above Respiratory normal respiratory effort, lungs clear to auscultation Cardiovascular RRR, no murmur, no edema Extremities: no calf tenderness and no edema Gastrointestinal (Abdomen) soft, nt, nd, ff/nt at u Psychiatric A+Ox3, euthymic affect Results & Data Vital Signs (Past 12 Hours) Vital Signs Temp Pulse Resp BP Pulse Ox O2 Del Method 04/17/25 23:45 36.6 C 77 16 107/72 99 Room Air 04/17/25 19:30 36.3 C L 78 16 108/70 98 Room Air
[2025-04-18 07:23] LABS: Hematocrit (blood only) 36.2 % (37.0-47.0); Hemoglobin 11.7 g/dl (12.0-16.0)
[2025-04-18] MEDS: FLUDROCORTISONE ACETATE 0.1 MG TAB PO SCH (08:13)
[2025-04-18 11:08] VITALS: BP 120/82; PULSE 80; RESP 19; TEMP 98.1
== END 2025-04-18 15:07 | disposition home or self-care (01) | DRG 768 ==
LOC: OPB 09:01 → 4S1 09:02 → 4E2 04-17 02:50